=== PATIENT | male | born 1995 | race African-American/Black ===

== ENCOUNTER 2016-06-11 18:07 | Emergency (ER) | payer OTHER ==
[~2016-06-11] VITALS: Ht 182.9 cm; Wt 60.9 kg
[~2016-06-11 18:07] MED LIST: NAPR375T3 PO
[2016-06-11 18:13] VITALS: TEMP 36.8; Ht 182.9 cm; Wt 60.9 kg
[2016-06-11 18:57] LABS: BASO % 0.3 %; BASO ABS # 0.02 K/uL (0-0.2); COMPLETE YES; EOS % 0.8 %; HEMATOCRIT 40.3 % (42-52); IG% 0.1 %; LYMPH % 22.8 %; LYMPH ABS # 1.76 K/uL (1.2-3.4); MEAN CELL VOLUME 85.9 fL (80-100); MEAN CORPUSCULAR HEMOGLOBIN 30.5 pg (25-34); MEAN CORPUSCULAR HGB CONC 35.5 g/dl (32-36); MEAN PLATELET VOLUME 9.1 fL (7.4-10.4); MONO % 2.8 %; NEUT % 73.2 %; PLATELET COUNT 319 K/uL (130-400); RED BLOOD COUNT 4.69 M/uL (4.7-6.1); WHITE BLOOD COUNT 7.73 K/uL (4.8-10.8)
[2016-06-11 19:18] LABS: BUN/CREATININE RATIO 15.6 (10-20); CREATININE 0.88 mg/dl (0.60-1.40); POTASSIUM 3.5 mmol/L (3.5-5.1)
[2016-06-11 19:24] LABS: ACETAMINOPHEN < 2 ug/ml (10-30)
[2016-06-11 19:25] LABS: URINE APPEARANCE CLEAR (CLEAR); URINE BILIRUBIN NEG (NEG); URINE COLOR DK YELLOW; URINE EPITHELIAL CELL AUTO 20-30 /lpf (0-5); URINE NITRITE NEG (NEG); URINE PH 6.5 (4.5-7.5); URINE SPECIFIC GRAVITY 1.039 (1.000-1.030); UROBILINOGEN NEG (NEG); ZZUR CULT IF INDIC CLEAN CATCH NO
[2016-06-11 19:26] LABS: MANUAL MICROSCOPIC REQUIRED? NO; REVIEW REQ? NO
--- NOTE | 2016-06-11 19:27 | EMERGENCY ROOM VISIT NOTE ---
History Report prepared by Johanny: Jhonathan Castano Under the Supervision of: Dr. Lenny Perdue D.O. First contact with patient: 19:12 Chief Complaint: MENTAL HEALTH EVALUATION Stated Complaint: MENTAL HEALTH EVAL History of Present Illness The patient is a 20 year old male who presents to the Emergency Room with complaints of persistent suicidal ideation that has been worsening over the past few days. The patient notes that his medications have not been working. He has been taking them as prescribed except today he did not take them. The last dose he took was his night medications last night. He currently has thoughts of wanting to hurt himself and suicidal ideation. He denies having a plan. He notes that he has been admitted at the [facility] 3 times in the past year. His last admission was a month ago on May 05. The patient notes that he does not want to go back to the [facility] because he does not think it was working well or helping his symptoms. Source of History: patient Onset: the past few days Position: other (global) Note: Other associated symptoms: thoughts of wanting to hurt herself Denies: having a plan Review of Systems See HPI for pertinent positives & negatives. A total of 10 systems reviewed and were otherwise negative. Past Medical & Surgical Medical Problems: (1) ADHD (attention deficit hyperactivity disorder) (2) Anxiety (3) Hypokalemia (4) Marijuana abuse (5) Tobacco abuse Surgical Problems: (1) No pertinent past surgical history Family History Patient reports no known family medical history. Social History Smoking Status: Current Every Day Smoker Drug Use: marijuana Marital Status: single Housing Status: lives with family Occupation Status: employed Current/Historical Medications Scheduled Naproxen (Naproxen), 375 MG PO BID Allergies Coded Allergies: Acetaminophen (Verified Allergy, Unknown, red and itchy, 01/17/16) Physical Exam Vital Signs Date Time Temp Pulse Resp B/P Pulse Ox O2 Delivery O2 Flow Rate FiO2 06/11/16 19:59 111 18 109/67 96 06/11/16 18:13 36.8 135 18 123/82 97 Room Air Pain Rating (0-10): 0 Physical Exam GENERAL: Patient is awake alert in no acute distress patient is resting comfortably and showing no signs of anxiety EYES: The conjunctivae are clear. The pupils are round and reactive. EARS, NOSE, MOUTH AND THROAT: The nose is without any evidence of any deformity. Mucous membranes are moist tongue is midline. Widespread dental caries noted NECK: The neck is nontender and supple. RESPIRATORY: Normal respiratory effort is noted there is no evidence of wheezing rhonchi or rales CARDIOVASCULAR: Tachycardic but regular. No definite murmurs were noted. GASTROINTESTINAL: The abdomen is soft. Bowel sounds are present in all quadrants. Abdomen is nontender MUSCULOSKELETAL/EXTREMITIES: There is no evidence of gross deformity full range of motion is noted in the hips and shoulders SKIN: There is no obvious evidence of any rash. There are no petechiae, pallor or cyanosis noted. NEUROLOGIC: Patient is awake alert and oriented x3 strength is symmetric patellar reflexes are 2+ bilaterally PSYCH: Affect is normal. Patient makes good eye contact. Currently admits to vague passive suicidal ideation but no plan. Medical Decision & Procedures Laboratory Results 06/11/16 18:45 Red Blood Count 4.69, Mean Corpuscular Volume 85.9, Mean Corpuscular Hemoglobin 30.5, Mean Corpuscular Hemoglobin Concent 35.5, Mean Platelet Volume 9.1, Neutrophils (%) (Auto) 73.2, Lymphocytes (%) (Auto) 22.8, Monocytes (%) (Auto) 2.8, Eosinophils (%) (Auto) 0.8, Basophils (%) (Auto) 0.3, Neutrophils # (Auto) 5.66, Lymphocytes # (Auto) 1.76, Monocytes # (Auto) 0.22, Eosinophils # (Auto) 0.06, Basophils # (Auto) 0.02 06/11/16 18:45 Test 06/11/16 18:45 06/11/16 18:55 White Blood Count 7.73 K/uL (4.8-10.8) Red Blood Count 4.69 M/uL (4.7-6.1) Hemoglobin 14.3 g/dL (14.0-18.0) Hematocrit 40.3 % (42-52) Mean Corpuscular Volume 85.9 fL (80-100) Mean Corpuscular Hemoglobin 30.5 pg (25-34) Mean Corpuscular Hemoglobin Concent 35.5 g/dl (32-36) Platelet Count 319 K/uL (130-400) Mean Platelet Volume 9.1 fL (7.4-10.4) Neutrophils (%) (Auto) 73.2 % Lymphocytes (%) (Auto) 22.8 % Monocytes (%) (Auto) 2.8 % Eosinophils (%) (Auto) 0.8 % Basophils (%) (Auto) 0.3 % Neutrophils # (Auto) 5.66 K/uL (1.4-6.5) Lymphocytes # (Auto) 1.76 K/uL (1.2-3.4) Monocytes # (Auto) 0.22 K/uL (0.11-0.59) Eosinophils # (Auto) 0.06 K/uL (0-0.5) Basophils # (Auto) 0.02 K/uL (0-0.2) RDW Standard Deviation 40.7 fL (36.4-46.3) RDW Coefficient of Variation 13.0 % (11.5-14.5) Immature Granulocyte % (Auto) 0.1 % Immature Granulocyte # (Auto) 0.01 K/uL (0.00-0.02) Anion Gap 8.0 mmol/L (3-11) Est Creatinine Clear Calc Drug Dose 115.3 ml/min Estimated GFR () 143.3 Estimated GFR (Non- 123.7 BUN/Creatinine Ratio 15.6 (10-20) Calcium Level 9.0 mg/dl (8.5-10.1) Total Bilirubin 0.4 mg/dl (0.2-1) Aspartate Amino Transf (AST/SGOT) 14 U/L (15-37) Alanine Aminotransferase (ALT/SGPT) 15 U/L (12-78) Alkaline Phosphatase 100 U/L (45-117) Total Protein 8.0 gm/dl (6.4-8.2) Albumin 3.8 gm/dl (3.4-5.0) Globulin 4.2 gm/dl (2.5-4.0) Albumin/Globulin Ratio 0.9 (0.9-2) Thyroid Stimulating Hormone (TSH) 0.201 uIu/ml (0.300-4.500) Salicylates Level 2.4 mg/dl (2.8-20) Acetaminophen Level < 2 ug/ml (10-30) Ethyl Alcohol mg/dL < 3.0 mg/dl (0-3) Urine Color DK YELLOW Urine Appearance CLEAR (CLEAR) Urine pH 6.5 (4.5-7.5) Urine Specific [place] 1.039 (1.000-1.030) Urine Protein TRACE (NEG) Urine Glucose (UA) NEG (NEG) Urine Ketones TRACE (NEG) Urine Occult Blood NEG (NEG) Urine Nitrite NEG (NEG) Urine Bilirubin NEG (NEG) Urine Urobilinogen NEG (NEG) Urine Leukocyte Esterase TRACE (NEG) Urine WBC (Auto) 1-5 /hpf (0-5) Urine RBC (Auto) 0-4 /hpf (0-4) Urine Hyaline Casts (Auto) 1-5 /lpf (0-5) Urine Epithelial Cells (Auto) 20-30 /lpf (0-5) Urine Bacteria (Auto) NEG (NEG) Urine Opiates Screen POS (NEG) Urine Methadone, Qualitative NEG (NEG) Urine Barbiturates NEG (NEG) Urine Phencyclidine (PCP) Level NEG (NEG) Ur Amphetamine/Methamphetamine NEG (NEG) MDMA (Ecstasy) Screen POS (NEG) Urine Benzodiazepines Screen NEG (NEG) Urine Cocaine Metabolite NEG (NEG) Urine Marijuana (THC) NEG (NEG) Laboratory results per my review. ED Course 191: The patient was evaluated in room A5. A complete history and physical examination were performed. 193: At this time, the patient decided he wanted to go home. The patient was discharged home. Medical Decision Differential diagnosis: Etiologies such as mood disorder, infection, hypoglycemia, electrolyte abnormalities, cardiac sources, intracerebral event, toxicologic, neurologic, as well as others were entertained. Nursing notes reviewed. The patient is a 20-year-old male who presented to the emergency department for an evaluation of depression and suicidal ideation. The patient was having passive suicidal ideation. He had a plan. He was medically cleared in the emergency department. He was evaluated by the mental health lining caser. The patient did not wish to have inpatient management. We discussed his case with his mother who was agreeable to come and picked the patient up and ensure safety. The patient was able to contract for safety. He was encouraged to follow -up with his primary therapist as soon as possible and continue all medications as prescribed. He was also encouraged to return to the emergency department immediately or call crisis if symptoms change worsen or the need arises. Impression Primary Impression: Anxiety Additional Impressions: Depression Suicidal ideation Scribe Attestation The scribe's documentation has been prepared under my direction and personally reviewed by me in its entirety. I confirm that the note above accurately reflects all work, treatment, procedures, and medical decision making performed by me. Departure Information Dispostion Home / Self-Care Referrals No Doctor, Assigned (PCP) Forms HOME CARE DOCUMENTATION FORM, IMPORTANT VISIT INFORMATION Patient Instructions Depression Causes, My [facility] Additional Instructions Follow-up with your primary therapist as scheduled. Continue all medications as prescribed. Drink plenty clear liquids. Follow-up with your family this week as well. Return to the emergency department or call crisis if symptoms worsen or if need arises. Problem Qualifiers Additional Impressions: Depression Depression Type: unspecified Qualified Codes: F32.9 - Major depressive disorder, single episode, unspecified
[2016-06-11 19:28] LABS: ALB/GLOB RATIO 0.9 (0.9-2); THYROID STIMULATING HORMONE 0.201 uIu/ml (0.300-4.500)
[2016-06-11 19:59] VITALS: BP 109/67; PULSE 111; O2SAT 96
[2016-06-11 20:02] LABS: BENZODIAZEPINE, URINE NEG (NEG); COCAINE,URINE NEG (NEG); PHENCYCLIDINE, URINE NEG (NEG)
[2016-06-16 15:37] LABS: COD UR NEGATIVE NG/ML (CUTOFF=50); HYDROCOD UR NEGATIVE NG/ML (CUTOFF=50); HYDROMOR UR 197 NG/ML (CUTOFF=50); MORPHINE UR 3700 NG/ML (CUTOFF=50); NORHYDROCODONE CONF UR NEGATIVE NG/ML (CUTOFF=50); OXYMORPH UR NEGATIVE NG/ML (CUTOFF=50); SYNTHETIC CANNABINOIDS QL URIN NEGATIVE (Negative)
[2016-06-24] MEDS ORDERED: CTP/1 PO (09:36)
[2016-06-24] MEDS ORDERED: SRQ/50 PO (09:36)
[2016-06-24] MEDS ORDERED: LXP/20 PO (09:36)
[2016-06-24] MEDS ORDERED: NRN300 PO (09:36)
== END 2016-06-11 20:00 | disposition home or self-care (01) ==
LOC: C.EDB 18:07 → C.EDA 20:00
DX: F32.9 Major depressive disorder, single episode, unspecified (principal); R45.851 Suicidal ideations; F41.9 Anxiety disorder, unspecified; F90.9 Attention-deficit hyperactivity disorder, unspecified type; F17.200 Nicotine dependence, unspecified, uncomplicated; Z88.6 Allergy status to analgesic agent

== ENCOUNTER 2016-06-22 12:39 | Inpatient (IN) | payer OTHER ==
[~2016-06-22] VITALS: Ht 182.9 cm; Wt 63.4 kg
[2016-06-22] MEDS ORDERED: LXP/20 PO (13:00)
[2016-06-22] MEDS ORDERED: CTP/1 PO (13:00)
[2016-06-22] MEDS ORDERED: CTP1 PO (13:00)
[2016-06-22] MEDS ORDERED: CHLO100T8 PO (13:00)
[2016-06-22] MEDS ORDERED: ATV/1 PO (13:08)
[2016-06-22] MEDS ORDERED: NPR375 PO (13:08)
[2016-06-22] MEDS ORDERED: PENI-82 PO (13:08)
[2016-06-22 13:32] LABS: BASO % 0.2 %; BASO ABS # 0.02 K/uL (0-0.2); COMPLETE YES; HEMATOCRIT 43.3 % (42-52); IG% 0.2 %; LYMPH % 27.1 %; LYMPH ABS # 2.34 K/uL (1.2-3.4); MEAN CELL VOLUME 88.5 fL (80-100); MEAN CORPUSCULAR HEMOGLOBIN 30.7 pg (25-34); MEAN CORPUSCULAR HGB CONC 34.6 g/dl (32-36); MEAN PLATELET VOLUME 9.1 fL (7.4-10.4); MONO % 5.5 %; PLATELET COUNT 237 K/uL (130-400); RED BLOOD COUNT 4.89 M/uL (4.7-6.1); WHITE BLOOD COUNT 8.65 K/uL (4.8-10.8)
[2016-06-22 13:39] LABS: URINE APPEARANCE CLEAR (CLEAR); URINE BILIRUBIN NEG (NEG); URINE COLOR DK YELLOW; URINE NITRITE NEG (NEG); URINE SPECIFIC GRAVITY 1.022 (1.000-1.030); UROBILINOGEN NEG (NEG); ZZUR CULT IF INDIC CLEAN CATCH YES
[2016-06-22 13:41] LABS: MANUAL MICROSCOPIC REQUIRED? NO; REVIEW REQ? NO
[2016-06-22 13:51] LABS: BUN/CREATININE RATIO 11.5 (10-20); CALCIUM 9.1 mg/dl (8.5-10.1); CREATININE 0.95 mg/dl (0.60-1.40)
[2016-06-22 13:54] LABS: ACETAMINOPHEN < 2 ug/ml (10-30)
[2016-06-22 14:03] LABS: ALB/GLOB RATIO 0.9 (0.9-2); THYROID STIMULATING HORMONE 2.2 uIu/ml (0.300-4.500)
[2016-06-22 14:03] LABS: BENZODIAZEPINE, URINE NEG (NEG); COCAINE,URINE NEG (NEG); PHENCYCLIDINE, URINE NEG (NEG)
--- NOTE | 2016-06-22 14:09 | EMERGENCY ROOM VISIT NOTE ---
History Report prepared by Johanny: Halle Montemayor Under the Supervision of: Dr. Dominique Carty D.O. First contact with patient: 13:28 Chief Complaint: MENTAL HEALTH EVALUATION Stated Complaint: MENTAL HEALTH History of Present Illness The patient is a 20 year old male who presents to the Emergency Room with complaints of worsening depression over the past two weeks. The patient states that he has a history of depression and recently had a change in his medications. He notes that he was recently evaluated in the [facility] and placed on Lexapro, Clonidine, and Thorazine. The patient states that he felt that the medications were working while he was at the [facility], but he notes that over the past two weeks he has been falling back to where he was before. He states that he has been feeling suicidal, but denies any plan. The patient states that he has had thoughts that things would be easier if he was not here. He notes emotional pain, increased stress, and decreased energy. The patient states that he has not been wanting to get out of bed to do simple tasks, or to see his friends, family, or girlfriend. He denies any homicidal ideation. The patient denies any auditory or visual hallucinations. He states that he has been experiencing racing thoughts. The patient states that he was recently evaluated in [facility] emergency department and placed on Penicillin and pain medication for his teeth. He states that he has been feeling lightheaded with standing, but notes that he has had a decrease in his appetite and fluid intake. The patient states that he smokes cigarettes, but denies any recreational drugs or alcohol. Source of History: patient Onset: two weeks Position: other (global) Quality: other (depression) Timing: worsening Note: Associated Symptoms: decrease in appetite and fluid intake, suicidal ideation without a plan, lightheaded with standing, emotional pain, increased stress, decreased energy Review of Systems See HPI for pertinent positives & negatives. A total of 10 systems reviewed and were otherwise negative. Past Medical & Surgical Medical Problems: (1) ADHD (attention deficit hyperactivity disorder) (2) Anxiety (3) Hypokalemia (4) Marijuana abuse (5) Tobacco abuse Surgical Problems: (1) No pertinent past surgical history Family History Patient reports no known family medical history. Social History Smoking Status: Current Every Day Smoker Drug Use: marijuana Marital Status: single Housing Status: lives with family Occupation Status: employed Current/Historical Medications Scheduled Chlorpromazine Hcl (Thorazine), 100 MG PO TID Clonidine HCl (Clonidine HCl), 0.05 MG PO QAM Clonidine Hcl (Catapres), 0.1 MG PO HS Escitalopram Oxalate (Escitalopram Oxalate), 20 MG PO DAILY Scheduled PRN Naproxen (Naproxen), 375 MG PO BID PRN for Pain Allergies Coded Allergies: Acetaminophen (Verified Allergy, Unknown, red and itchy, 01/17/16) Physical Exam Vital Signs Date Time Temp Pulse Resp B/P Pulse Ox O2 Delivery O2 Flow Rate FiO2 06/22/16 14:37 80 16 105/67 95 06/22/16 12:40 36.9 118 20 133/83 98 Room Air Physical Exam GENERAL: alert, well appearing, well nourished, no distress, non-toxic EYE EXAM: normal conjunctiva, PERRL and EOM's grossly intact OROPHARYNX: no exudate, no erythema, lips, buccal mucosa, and tongue normal and mucous membranes are moist NECK: supple, no nuchal rigidity, no adenopathy, non-tender LUNGS: Clear to auscultation. Normal chest wall mechanics HEART: no murmurs, S1 normal and S2 normal ABDOMEN: abdomen soft, non-tender, normo-active bowel sounds, no masses, no rebound or guarding. BACK: Back is symmetrical on inspection and there is no deformity, no midline tenderness, no CVA tenderness. SKIN: no rashes and no bruising UPPER EXTREMITIES: upper extremities are grossly normal. LOWER EXTREMITIES: No pitting edema. NEURO EXAM: Normal sensorium, cranial nerves II-XII grossly intact, normal speech, no gross weakness of arms, no gross weakness of legs. PSYCH: Patient admits to suicidal ideation without a plan, denies homicidal ideation or paranoia. Medical Decision & Procedures Laboratory Results 06/22/16 13:18 Red Blood Count 4.89, Mean Corpuscular Volume 88.5, Mean Corpuscular Hemoglobin 30.7, Mean Corpuscular Hemoglobin Concent 34.6, Mean Platelet Volume 9.1, Neutrophils (%) (Auto) 63.0, Lymphocytes (%) (Auto) 27.1, Monocytes (%) (Auto) 5.5, Eosinophils (%) (Auto) 4.0, Basophils (%) (Auto) 0.2, Neutrophils # (Auto) 5.44, Lymphocytes # (Auto) 2.34, Monocytes # (Auto) 0.48, Eosinophils # (Auto) 0.35, Basophils # (Auto) 0.02 06/22/16 13:18 Test 06/22/16 00:00 06/22/16 13:08 06/22/16 13:18 Urine Color DK YELLOW Urine Appearance CLEAR (CLEAR) Urine pH 5.0 (4.5-7.5) Urine Specific [place] 1.022 (1.000-1.030) Urine Protein NEG (NEG) Urine Glucose (UA) NEG (NEG) Urine Ketones NEG (NEG) Urine Occult Blood NEG (NEG) Urine Nitrite NEG (NEG) Urine Bilirubin NEG (NEG) Urine Urobilinogen NEG (NEG) Urine Leukocyte Esterase SMALL (NEG) Urine WBC (Auto) 10-30 /hpf (0-5) Urine RBC (Auto) 0-4 /hpf (0-4) Urine Hyaline Casts (Auto) 5-10 /lpf (0-5) Urine Epithelial Cells (Auto) 10-20 /lpf (0-5) Urine Bacteria (Auto) NEG (NEG) Urine Opiates Screen POS (NEG) Urine Methadone, Qualitative NEG (NEG) Urine Barbiturates NEG (NEG) Urine Phencyclidine (PCP) Level NEG (NEG) Ur Amphetamine/Methamphetamine NEG (NEG) MDMA (Ecstasy) Screen POS (NEG) Urine Benzodiazepines Screen NEG (NEG) Urine Cocaine Metabolite NEG (NEG) Urine Marijuana (THC) NEG (NEG) Salicylates Level 2.1 mg/dl (2.8-20) Acetaminophen Level < 2 ug/ml (10-30) White Blood Count 8.65 K/uL (4.8-10.8) Red Blood Count 4.89 M/uL (4.7-6.1) Hemoglobin 15.0 g/dL (14.0-18.0) Hematocrit 43.3 % (42-52) Mean Corpuscular Volume 88.5 fL (80-100) Mean Corpuscular Hemoglobin 30.7 pg (25-34) Mean Corpuscular Hemoglobin Concent 34.6 g/dl (32-36) Platelet Count 237 K/uL (130-400) Mean Platelet Volume 9.1 fL (7.4-10.4) Neutrophils (%) (Auto) 63.0 % Lymphocytes (%) (Auto) 27.1 % Monocytes (%) (Auto) 5.5 % Eosinophils (%) (Auto) 4.0 % Basophils (%) (Auto) 0.2 % Neutrophils # (Auto) 5.44 K/uL (1.4-6.5) Lymphocytes # (Auto) 2.34 K/uL (1.2-3.4) Monocytes # (Auto) 0.48 K/uL (0.11-0.59) Eosinophils # (Auto) 0.35 K/uL (0-0.5) Basophils # (Auto) 0.02 K/uL (0-0.2) RDW Standard Deviation 43.8 fL (36.4-46.3) RDW Coefficient of Variation 13.5 % (11.5-14.5) Immature Granulocyte % (Auto) 0.2 % Immature Granulocyte # (Auto) 0.02 K/uL (0.00-0.02) Anion Gap 9.0 mmol/L (3-11) Est Creatinine Clear Calc Drug Dose 111.2 ml/min Estimated GFR () 133.0 Estimated GFR (Non- 114.8 BUN/Creatinine Ratio 11.5 (10-20) Calcium Level 9.1 mg/dl (8.5-10.1) Total Bilirubin 0.4 mg/dl (0.2-1) Aspartate Amino Transf (AST/SGOT) 14 U/L (15-37) Alanine Aminotransferase (ALT/SGPT) 16 U/L (12-78) Alkaline Phosphatase 95 U/L (45-117) Total Protein 7.6 gm/dl (6.4-8.2) Albumin 3.7 gm/dl (3.4-5.0) Globulin 3.9 gm/dl (2.5-4.0) Albumin/Globulin Ratio 0.9 (0.9-2) Thyroid Stimulating Hormone (TSH) 2.200 uIu/ml (0.300-4.500) Ethyl Alcohol mg/dL < 3.0 mg/dl (0-3) Laboratory results per my review. ED Course 1344: The patient was evaluated in room A8. A complete history and physical examination was performed. 1555: Patient being evaluated by behavioral health staff. Patient denies any complaints. GC/committee added to urine, awaiting culture. Patient covered for possible STD exposure in the interim. Of note additional nursing investigation found the patient's current medication list is not accurate. Patient's urine drug screen was also positive for opiates. Medical Decision The patient is a 20 year old male who presents to the ED with complaints of worsening depression. Differential diagnosis include, anxiety, depression, thyroid disorder Impression Primary Impression: Depression Scribe Attestation The scribe's documentation has been prepared under my direction and personally reviewed by me in its entirety. I confirm that the note above accurately reflects all work, treatment, procedures, and medical decision making performed by me. Departure Information Referrals No Doctor, Assigned (PCP) Patient Instructions My [facility] Problem Qualifiers Primary Impression: Depression Depression Type: unspecified Qualified Codes: F32.9 - Major depressive disorder, single episode, unspecified
[2016-06-22 14:37] VITALS: O2SAT 95
[2016-06-22] MEDS ORDERED: AZITHROMYCIN 250 MG TAB PO ONE (16:00)
[2016-06-22] MEDS ORDERED: CEFTRIAXONE SOD 350MG/ML 1 GM VIAL IM ONE (16:00)
[2016-06-22] MEDS ORDERED: MAGNESIUM HYDROXIDE SUSP 30 ML UDC PO PRN (16:30)
[2016-06-22] MEDS ORDERED: SODIUM CHLORIDE 0.65% NA SOLN 45 ML (OCEAN) PRN (16:30)
[2016-06-22] MEDS ORDERED: IBUPROFEN 600 MG TAB PO PRN (16:30)
[2016-06-22] MEDS ORDERED: ALUMINUM/MAGNESIUM SUSP 30 ML UDC PO PRN (16:30)
[2016-06-22] MEDS ORDERED: BISMUTH SUBSALICYLATE PER ML OMNICELL CHARGE PO PRN (16:30)
[2016-06-22] MEDS ORDERED: NICOTINE POLACRILEX 2 MG GUM MT PRN (16:30)
[2016-06-22] MEDS ORDERED: hydrOXYzine HCL 25 MG TAB PO PRN ×2 (16:30)
--- NOTE | 2016-06-22 16:52 | EMERGENCY ROOM VISIT NOTE ---
ED Visit Note This is a 20-year-old male signed out to me at change of shift. History and physical verified by me. Patient has been accepted to [facility]. and signed a 201. Problem List Medical Problems: (1) ADHD (attention deficit hyperactivity disorder) Status: Resolved (2) Marijuana abuse Status: Chronic (3) Tobacco abuse Status: Chronic Surgical Problems: (1) No pertinent past surgical history Status: Resolved Current/Historical Medications Scheduled Chlorpromazine Hcl (Thorazine), 100 MG PO TID Clonidine HCl (Clonidine HCl), 0.05 MG PO QAM Clonidine Hcl (Catapres), 0.1 MG PO HS Escitalopram Oxalate (Escitalopram Oxalate), 20 MG PO DAILY Scheduled PRN Naproxen (Naproxen), 375 MG PO BID PRN for Pain Allergies Coded Allergies: Acetaminophen (Verified Allergy, Unknown, red and itchy, 01/17/16) Vital Signs Date Time Temp Pulse Resp B/P Pulse Ox O2 Delivery O2 Flow Rate FiO2 06/22/16 14:37 80 16 105/67 95 06/22/16 12:40 36.9 118 20 133/83 98 Room Air Laboratory Results 06/22/16 13:18 Red Blood Count 4.89, Mean Corpuscular Volume 88.5, Mean Corpuscular Hemoglobin 30.7, Mean Corpuscular Hemoglobin Concent 34.6, Mean Platelet Volume 9.1, Neutrophils (%) (Auto) 63.0, Lymphocytes (%) (Auto) 27.1, Monocytes (%) (Auto) 5.5, Eosinophils (%) (Auto) 4.0, Basophils (%) (Auto) 0.2, Neutrophils # (Auto) 5.44, Lymphocytes # (Auto) 2.34, Monocytes # (Auto) 0.48, Eosinophils # (Auto) 0.35, Basophils # (Auto) 0.02 06/22/16 13:18 Test 06/22/16 00:00 06/22/16 13:08 06/22/16 13:18 Urine Color DK YELLOW Urine Appearance CLEAR (CLEAR) Urine pH 5.0 (4.5-7.5) Urine Specific [place] 1.022 (1.000-1.030) Urine Protein NEG (NEG) Urine Glucose (UA) NEG (NEG) Urine Ketones NEG (NEG) Urine Occult Blood NEG (NEG) Urine Nitrite NEG (NEG) Urine Bilirubin NEG (NEG) Urine Urobilinogen NEG (NEG) Urine Leukocyte Esterase SMALL (NEG) Urine WBC (Auto) 10-30 /hpf (0-5) Urine RBC (Auto) 0-4 /hpf (0-4) Urine Hyaline Casts (Auto) 5-10 /lpf (0-5) Urine Epithelial Cells (Auto) 10-20 /lpf (0-5) Urine Bacteria (Auto) NEG (NEG) Urine Opiates Screen POS (NEG) Urine Methadone, Qualitative NEG (NEG) Urine Barbiturates NEG (NEG) Urine Phencyclidine (PCP) Level NEG (NEG) Ur Amphetamine/Methamphetamine NEG (NEG) MDMA (Ecstasy) Screen POS (NEG) Urine Benzodiazepines Screen NEG (NEG) Urine Cocaine Metabolite NEG (NEG) Urine Marijuana (THC) NEG (NEG) Salicylates Level 2.1 mg/dl (2.8-20) Acetaminophen Level < 2 ug/ml (10-30) White Blood Count 8.65 K/uL (4.8-10.8) Red Blood Count 4.89 M/uL (4.7-6.1) Hemoglobin 15.0 g/dL (14.0-18.0) Hematocrit 43.3 % (42-52) Mean Corpuscular Volume 88.5 fL (80-100) Mean Corpuscular Hemoglobin 30.7 pg (25-34) Mean Corpuscular Hemoglobin Concent 34.6 g/dl (32-36) Platelet Count 237 K/uL (130-400) Mean Platelet Volume 9.1 fL (7.4-10.4) Neutrophils (%) (Auto) 63.0 % Lymphocytes (%) (Auto) 27.1 % Monocytes (%) (Auto) 5.5 % Eosinophils (%) (Auto) 4.0 % Basophils (%) (Auto) 0.2 % Neutrophils # (Auto) 5.44 K/uL (1.4-6.5) Lymphocytes # (Auto) 2.34 K/uL (1.2-3.4) Monocytes # (Auto) 0.48 K/uL (0.11-0.59) Eosinophils # (Auto) 0.35 K/uL (0-0.5) Basophils # (Auto) 0.02 K/uL (0-0.2) RDW Standard Deviation 43.8 fL (36.4-46.3) RDW Coefficient of Variation 13.5 % (11.5-14.5) Immature Granulocyte % (Auto) 0.2 % Immature Granulocyte # (Auto) 0.02 K/uL (0.00-0.02) Anion Gap 9.0 mmol/L (3-11) Est Creatinine Clear Calc Drug Dose 111.2 ml/min Estimated GFR () 133.0 Estimated GFR (Non- 114.8 BUN/Creatinine Ratio 11.5 (10-20) Calcium Level 9.1 mg/dl (8.5-10.1) Total Bilirubin 0.4 mg/dl (0.2-1) Aspartate Amino Transf (AST/SGOT) 14 U/L (15-37) Alanine Aminotransferase (ALT/SGPT) 16 U/L (12-78) Alkaline Phosphatase 95 U/L (45-117) Total Protein 7.6 gm/dl (6.4-8.2) Albumin 3.7 gm/dl (3.4-5.0) Globulin 3.9 gm/dl (2.5-4.0) Albumin/Globulin Ratio 0.9 (0.9-2) Thyroid Stimulating Hormone (TSH) 2.200 uIu/ml (0.300-4.500) Ethyl Alcohol mg/dL < 3.0 mg/dl (0-3) Medications Administered Medications (Trade) Dose Ordered Sig/[place]cho[place] Route Start Time Stop Time Status Last Admin Dose Admin Azithromycin (Zithromax Tab) 1,000 mg NOW ONCE PO 06/22/16 16:00 06/22/16 16:01 DC 06/22/16 16:22 1,000 MG Departure Information Impression Primary Impression: Depression Referrals No Doctor, Assigned Patient Instructions My [facility]
[2016-06-22] MEDS ORDERED: NICOTINE 21 MG/24 HR TDSY TD ONE (17:18)
[2016-06-22 18:55] VITALS: BP 115/83; PULSE 72; TEMP 36.9; Ht 182.9 cm; Wt 63.4 kg
[2016-06-22 21:15] VITALS: BP 114/70; PULSE 74
[2016-06-22] MEDS: CLONIDINE HCL 0.1 MG TAB PO SCH (21:38)
[2016-06-22] MEDS: CHLORPROMAZINE HCL 100 MG TAB PO SCH (21:38)
[2016-06-22] MEDS: NAPROXEN 375 MG TAB PO PRN (21:41)
[2016-06-23 06:30] VITALS: BP_SYST 104; BP_SYST 94; BP_DIAS 57; BP_DIAS 64; PULSE 66; PULSE 89; TEMP 36.4
[2016-06-23] MEDS ORDERED: NICOTINE 14 MG/24 HR TDSY TD SCH (09:00)
[2016-06-23] MEDS ORDERED: NICOTINE 7 MG/24 HR TDSY TD SCH (09:00)
[2016-06-23] MEDS ORDERED: NICOTINE 21 MG/24 HR TDSY TD SCH (09:00)
[2016-06-23] MEDS: ESCITALOPRAM OXALATE 20 MG TAB PO SCH (09:16)
[2016-06-23] MEDS: CLONIDINE HCL 0.1 MG TAB PO SCH ×2 (09:17→21:00)
[2016-06-23] MEDS: CHLORPROMAZINE HCL 100 MG TAB PO SCH (09:17)
[2016-06-23] MEDS: NICOTINE 21 MG/24 HR TDSY TD SCH (09:21)
--- NOTE | 2016-06-23 11:06 | Psychiatric History & Physical ---
History Identifying Data Ga Rainey is a 20-year-old male who currently lives in [place] with his mother. Ga Rainey was admitted on a 201 voluntary commitment. He presented to the ED c/o panic attacks and requesting psych med changes. Chief Complaint "If you aren't going to give me Ativan I don't see a point in staying here". History of Present Illness Ga has a history of frequent trips to the ED and reports 3 psychiatric hospitalizations at the [facility] in the past year for anxiety and passive wish. "I wouldn't hurt myself but I sometimes feel it would be easier if I wasn 't around". He was previously seen in psychiatric consultation by Dr. Baptiste on after several visits to ED for panic. It was noted at that time that he self medicates with MJ and recommendations were to avoid benzos. Based on [employer] query it apperas that he was prescribed Ativan while at the [facility], no benzo since October when is was tapered by Dr. Flores. He states that he was admitted to the [facility] in May for uncontrolled anxiety with "racing thoughts", mainly worries about something bad happening to his mother or not being able to pay his bills which then escalates to feeling of chest tightness. He was switched from Seroquel 50 mg BID and 100 hs to Thorazine during that stay. 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 He states he won't feel like getting out of bed and isolates more, "my mom can tell ". He may not feel like making himself something to eat. He is rather vague about the frequency of his MJ use, admits that when he is stressed he will smoke up to 1 PPD (usually 1/2 PPD cigarettes). He has also received Tylenol with codeine short supplies from various EDs for dental pain as he has very poor dentition. [facility] confirmed to staff that he has missed 12 appts but apparently has had med refills as pharmacy confirms meds filled as listed on 06/17. He states that Lexapro has been more helpful than Celexa previously for his mood. He believes that he may have been diagnosed with unspecified bipolar disorder but denies any periods of hypomania or extreme irritability. He denies a history of rowan. Some of his previous ED visits for panic were in setting of cannabis withdrawal. Past Psychiatric History Current OP Treatment: no current treatment Prior OP Treatment: psychiatrist (Dr. Arriaga as a child for ADHD) Prior Psych Hospitalizations: [facility] (as above, most recent 06/02, signing ABUNDIO, denies suicide attempts) past meds have included Celexa, Seroquel, trazodone and current rx. He is unsure what he took for ADHD as a child. He believes clonidine is for impulsivity as he denies a history of HTN. Past Medical/Surgical History History of HTN: No History of Concussion/Seizure: No Problem List: (1) Tobacco abuse (2) Marijuana abuse Allergies Allergies: Coded Allergies: Acetaminophen (Verified Allergy, Unknown, red and itchy, 01/17/16) Home Medications Scheduled Chlorpromazine Hcl (Thorazine), 100 MG PO TID Clonidine HCl (Clonidine HCl), 0.05 MG PO QAM Clonidine Hcl (Catapres), 0.1 MG PO HS Escitalopram Oxalate (Escitalopram Oxalate), 20 MG PO DAILY Scheduled PRN Naproxen (Naproxen), 375 MG PO BID PRN for Pain Family History Patient reports no known family medical history. History of Obesity: No History of HTN: No History of Diabetes: No History of Heart Disease: No History of Dyslipidemia: No states that brother was diagnosed with bipolar disorder and/or schizoaffective disorder, denies family history of suicide attempts but other family members on mom's side depressed states knows less on dad's side as "from [place] and don't buy that stuff" brother is currently incarcerated. Alcohol Use Alcohol Use In Past 12 Months: No (pt denies) Substance History Substance Use Past 12 Months: Hx of Inhalent Use: No (pt denies) Hx of Organic Substance Use: No (pt denies) Hx of Illegal/Street Drug Use: Yes (MJ, 1-2 joints, "regularly" but won't elaborate) Hx of Over the Counter Med Use: Yes (Z-Quil, recommended dose, HS, 06/21/16) Hx of Prescription Med Use: No (pt denies) Personal History Born in: [place] Education: graduated from high school (attended [employer] ) Work History: no regular work currently Relationship History: never Children: none Spiritual Affiliation: denies Legal History: none Abuse History: none Review of Systems Psych: denies symptoms other than stated above Constitutional: denied Cardiovascular: denied GI: denied Neurologic: denied Remainder of 10 body systems also reviewed and denied other than noted above other than poor dentition. Examination Physical Examination A physical exam was performed in the ER by Dr. Carty prior to admission to the unit. I accept that physical as correct/medical clearance for the inpatient physical exam. Vital Signs Vital Signs Past 12 Hours Date Time Temp Pulse Resp B/P Pulse Ox O2 Delivery O2 Flow Rate FiO2 06/23/16 06:30 36.4 66 16 94/57 89 104/64 Laboratory Results Last 24 Hours Test 06/22/16 13:08 06/22/16 13:18 Salicylates Level 2.1 mg/dl Acetaminophen Level < 2 ug/ml White Blood Count 8.65 K/uL Red Blood Count 4.89 M/uL Hemoglobin 15.0 g/dL Hematocrit 43.3 % Mean Corpuscular Volume 88.5 fL Mean Corpuscular Hemoglobin 30.7 pg Mean Corpuscular Hemoglobin Concent 34.6 g/dl Platelet Count 237 K/uL Mean Platelet Volume 9.1 fL Neutrophils (%) (Auto) 63.0 % Lymphocytes (%) (Auto) 27.1 % Monocytes (%) (Auto) 5.5 % Eosinophils (%) (Auto) 4.0 % Basophils (%) (Auto) 0.2 % Neutrophils # (Auto) 5.44 K/uL Lymphocytes # (Auto) 2.34 K/uL Monocytes # (Auto) 0.48 K/uL Eosinophils # (Auto) 0.35 K/uL Basophils # (Auto) 0.02 K/uL RDW Standard Deviation 43.8 fL RDW Coefficient of Variation 13.5 % Immature Granulocyte % (Auto) 0.2 % Immature Granulocyte # (Auto) 0.02 K/uL Sodium Level 140 mmol/L Potassium Level 4.0 mmol/L Chloride Level 104 mmol/L Carbon Dioxide Level 27 mmol/L Anion Gap 9.0 mmol/L Blood Urea Nitrogen 11 mg/dl Creatinine 0.95 mg/dl Est Creatinine Clear Calc Drug Dose 111.2 ml/min Estimated GFR () 133.0 Estimated GFR (Non- 114.8 BUN/Creatinine Ratio 11.5 Random Glucose 141 mg/dl Calcium Level 9.1 mg/dl Total Bilirubin 0.4 mg/dl Aspartate Amino Transf (AST/SGOT) 14 U/L Alanine Aminotransferase (ALT/SGPT) 16 U/L Alkaline Phosphatase 95 U/L Total Protein 7.6 gm/dl Albumin 3.7 gm/dl Globulin 3.9 gm/dl Albumin/Globulin Ratio 0.9 Thyroid Stimulating Hormone (TSH) 2.200 uIu/ml Ethyl Alcohol mg/dL < 3.0 mg/dl Mental Examination During interview pt is: alert and oriented Appearance: appropriately groomed, other (tattoos, poor dentition) Eye contact is: fair Motor behavior is: no abnormal motor movements Speech: normal in rate, rhythm & volume Affect: euthymic Mood is: anxious Thought process: clear, coherent Thought content: reality based without delusions Suicidal thought are: denied Homicidal thoughts are: denied Hallucinations: denies auditory, denies visual Cognition: attention grossly intact, language grossly intact Intelligence estimated to be: consistent with level of education Insight: limited Judgement: limited Impression / Recommendations Impression 20 yo male with history of anxiety and depression, family history of mood disorder, multiple presentations to ED and hospitalized recently at [facility]. Clearly seeking Ativan. Since admission to unit he states he will not plan to attend groups and asked questions about 72 hr notice if doesn't receive Ativan. He doesn't desire to quit smoking nor does he plan to change MJ use. Stressors include older brother's incarceration and lack of work. Risk Factors Assessment Male: Yes : Yes /single/: Yes Access to guns: Yes (previous consult notes a hunting rifle in the home) Substance use disorders: Yes Previous attempt: No Previous psychiatric stay: Yes Smoker: Yes Protective Factors Assessment Employed: No Supportive family: Yes Recommendations (1) Major depressive disorder, recurrent episode with anxious distress On admission: The patient is [facility]) on q 15 min checks (behavioral with suicide precautions) for safety. The patient will participate in group, recreational and milieu therapies and will be offered additional individual and family sessions as clinically appropriate. patient currently finds Lexapro helpful but remains anxious discussed obtaining ABUNDIO for [facility] and initiating thorazine taper in favor of a trial of Neurontin for anxiety/mood, reviewed that I advise against benzodiazepines. discussed possible retrial of Seroquel if records or family confirm that he was not abusing it needs outpatient follow up, ideally family meeting involving mom with confirmation that rifle is secure given recent passive wish (2) Tobacco abuse declines cessation counseling, accepts nicotine patch (3) Marijuana abuse advise abstinence CPT Code Initial Hospital Care: [id number]
[2016-06-23] MEDS: NAPROXEN 375 MG TAB PO PRN ×2 (15:45→21:02)
--- NOTE | 2016-06-23 16:00 | Psych Management Progress Note ---
Psychiatry Miscellaneous Date of Service: Jun 23, 2016. case discussed with oncology social work who confirmed that spoke with mother, supports return home, patient signed 72 hour notice, is agreeable to stay in hospital overnight for additional monitoring. Aftercare will be with [facility]. Mother asked for letter of inability to work/senior care disability for patient, reviewed that that is not recommended at this time. Ana Fierro stated that mother confirmed no weapons in the home, no longer a hunting rifle.
[2016-06-23] MEDS ORDERED: CHLORPROMAZINE HCL 50 MG PO SCH (17:00)
[2016-06-23] MEDS: GABAPENTIN 300 MG CAP PO SCH (17:14)
[2016-06-23] MEDS: CHLORPROMAZINE HCL 25 MG TAB PO SCH (17:14)
[2016-06-24] MEDS: NAPROXEN 375 MG TAB PO PRN (04:46)
[2016-06-24 06:51] VITALS: BP_SYST 112; BP_SYST 118; BP_DIAS 59; BP_DIAS 63; PULSE 75; PULSE 87; TEMP 36.5
[2016-06-24] MEDS: GABAPENTIN 300 MG CAP PO SCH (09:18)
[2016-06-24] MEDS: ESCITALOPRAM OXALATE 20 MG TAB PO SCH (09:19)
[2016-06-24] MEDS: CHLORPROMAZINE HCL 25 MG TAB PO SCH (09:19)
[2016-06-24] MEDS: CLONIDINE HCL 0.1 MG TAB PO SCH (09:20)
[2016-06-24] MEDS: NICOTINE 21 MG/24 HR TDSY TD SCH (09:22)
[2016-06-24] MEDS ORDERED: CTP/1 PO (09:36)
[2016-06-24] MEDS ORDERED: SRQ/50 PO (09:36)
[2016-06-24] MEDS ORDERED: LXP/20 PO (09:36)
[2016-06-24] MEDS ORDERED: NRN300 PO (09:36)
--- NOTE | 2016-06-24 09:44 | Discharge Instructions ---
Discharge Information Report Includes Report will include the: Discharge Instructions & Summary Admission Admission Date / Time: Jun 22, 2016 at 16:22 Reason for Admission: Mental Health Discharge Discharge Diagnosis / Problem: depression, anxiety Condition at Discharge: Fair Discharge Goals Goal(s): Decrease discomfort, Improve disease control Activity Recommendations Activity Limitations: resume your previous activity . Instructions / Follow-Up Instructions / Follow-Up . SPECIAL CARE INSTRUCTIONS: 1. Follow through with your scheduled aftercare appointments. If unable to keep an appointment, please call to reschedule. 2. Take your medication only as prescribed. Medication should not be changed or stopped without the approval of your doctor. In the event of worsening symptoms or concerns about side effects, contact your doctor immediately. 3. Utilize new healthy coping skills, anger management skills, and stress management skills learned during your hospitalization. Journal feelings and process them with a support person. Identify stressors or situations that may result in relapse, deterioration or inappropriate behaviors and develop a plan to deal with those issues. 4. If your coping skills are ineffective and you are in crisis, contact your outpatient providers for direction. If unable to reach your providers, please call the CAN HELP LINE AT or go to the closest Emergency Room. 5. Avoid alcohol and un-prescribed drugs. 6. You have been provided with the Mental Health Advance Directives Pamphlet for your review. AFTERCARE APPOINTMENTS: * Please call your insurance company prior to your scheduled appointment to confirm your aftercare providers are covered. Take your insurance information to your appointments. . Discharge / Aftercare Planning Primary Care Physician: Name: Dr. Tyson Appointment Notes: As needed Psychiatrist: Name: Sarah Walls [facility] Date of Appointment: Jul 21, 2016 Time of Appointment: 1:30 Therapist: Name Of Therapist: none, pt not willing to accept Agency Manager: Name: none, pt not willing to accept . Follow-Up Care Plan for Follow-Up Care: keep follow up appointments it is recommended you abstain from marijuana Current Hospital Diet Patient's current hospital diet: Regular Diet Discharge Diet Recommended Diet: Regular Diet Procedures Procedures Performed: No Pending Studies Pending Studies at Discharge: No Medical Emergencies . Who to Call and When: Medical Emergencies: For questions or emergencies related to your hospital stay, please contact the Inpatient Behavioral Health Unit at [phone]. A plate corrector is on-call 06/11 for the Behavioral Health Unit for emergencies At any time you feel your situation is an emergency, you may also call 911 immediately. . Non-Emergent Contact Non-Emergency issues call your: Primary Care Provider Advance Directives Existing Advance Directive: No Do You Have an Existing Mental: No Existing Living Will: No Existing Power of Timber Watchman: No Advance Directives Info Given: To Pt/S.O. (declines advance directives due to age and mental health admit) Discharge Summary Admission HPI Per the Admitting provider: Ga has a history of frequent trips to the ED and reports 3 psychiatric hospitalizations at the [facility] in the past year for anxiety and passive wish. "I wouldn't hurt myself but I sometimes feel it would be easier if I wasn 't around". He was previously seen in psychiatric consultation by Dr. Baptiste on after several visits to ED for panic. It was noted at that time that he self medicates with MJ and recommendations were to avoid benzos. Based on [employer] query it apperas that he was prescribed Ativan while at the [facility], no benzo since October when is was tapered by Dr. Flores. He states that he was admitted to the [facility] in May for uncontrolled anxiety with "racing thoughts", mainly worries about something bad happening to his mother or not being able to pay his bills which then escalates to feeling of chest tightness. He was switched from Seroquel 50 mg BID and 100 hs to Thorazine during that stay. 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 He states he won't feel like getting out of bed and isolates more, "my mom can tell ". He may not feel like making himself something to eat. He is rather vague about the frequency of his MJ use, admits that when he is stressed he will smoke up to 1 PPD (usually 1/2 PPD cigarettes). He has also received Tylenol with codeine short supplies from various EDs for dental pain as he has very poor dentition. [facility] confirmed to staff that he has missed 12 appts but apparently has had med refills as pharmacy confirms meds filled as listed on 06/17. He states that Lexapro has been more helpful than Celexa previously for his mood. He believes that he may have been diagnosed with unspecified bipolar disorder but denies any periods of hypomania or extreme irritability. He denies a history of rowan. Some of his previous ED visits for panic were in setting of cannabis withdrawal. Hospital Course (1) Major depressive disorder, recurrent episode with anxious distress On admission: The patient is admitted to [facility] ([facility] mental [facility]) on q 15 min checks (behavioral with suicide precautions) for safety. The patient will participate in group, recreational and milieu therapies and will be offered additional individual and family sessions as clinically appropriate. patient currently finds Lexapro helpful but remains anxious discussed obtaining ABUNDIO for [facility] and initiating thorazine taper in favor of a trial of Neurontin for anxiety/mood, reviewed that I advise against benzodiazepines. discussed possible retrial of Seroquel if records or family confirm that he was not abusing it needs outpatient follow up, ideally family meeting involving mom with confirmation that rifle is secure given recent passive wish (2) Tobacco abuse declines cessation counseling, accepts nicotine patch (3) Marijuana abuse advise abstinence Risk Factors Assessment Male: Yes : Yes /single/: Yes Access to guns: No (mother confirmed) Substance use disorders: Yes Previous attempt: No Previous psychiatric stay: Yes Smoker: Yes Protective Factors Assessment Employed: No Supportive family: Yes Day of Discharge Assessment Patient did not participate in programming on the unit and spent most of the day in bed. States he didn't sleep well due to restless legs and requests Klonopin. Reviewed that just like discussion yesterday I recommend trials of neurontin and now that tapered off of thorazine he may resume his previous dose of Seroquel. Risks/benefits/alternative treatments were reviewed re: antipsychotics for mood and/or psychosis. Discussion included but was not limited to metabolic side effects, risks of TD and suicidal thoughts. Baseline AIMS=0. Fasting glucose and lipid panel cannot be obtained today as already ate breakfast. He declines longer stay in hospital and submitted 72 hour notice yesterday, requested discharge yesterday afternoon. No issues overnight. Denies SI. Laboratory Test 06/11/16 18:45 06/11/16 18:55 06/22/16 00:00 06/22/16 13:08 White Blood Count 7.73 Red Blood Count 4.69 L Hemoglobin 14.3 Hematocrit 40.3 L Mean Corpuscular Volume 85.9 Mean Corpuscular Hemoglobin 30.5 Mean Corpuscular Hemoglobin Concent 35.5 Platelet Count 319 Mean Platelet Volume 9.1 Neutrophils (%) (Auto) 73.2 Lymphocytes (%) (Auto) 22.8 Monocytes (%) (Auto) 2.8 Eosinophils (%) (Auto) 0.8 Basophils (%) (Auto) 0.3 Neutrophils # (Auto) 5.66 Lymphocytes # (Auto) 1.76 Monocytes # (Auto) 0.22 Eosinophils # (Auto) 0.06 Basophils # (Auto) 0.02 RDW Standard Deviation 40.7 RDW Coefficient of Variation 13.0 Immature Granulocyte % (Auto) 0.1 Immature Granulocyte # (Auto) 0.01 Sodium Level 139 Potassium Level 3.5 Chloride Level 105 Carbon Dioxide Level 26 Anion Gap 8.0 Blood Urea Nitrogen 14 Creatinine 0.88 Est Creatinine Clear Calc Drug Dose 115.3 Estimated GFR () 143.3 Estimated GFR (Non- 123.7 BUN/Creatinine Ratio 15.6 Random Glucose 113 H Calcium Level 9.0 Total Bilirubin 0.4 Aspartate Amino Transferase (AST) 14 L Alanine Aminotransferase (ALT) 15 Alkaline Phosphatase 100 Total Protein 8.0 Albumin 3.8 Globulin 4.2 H Albumin/Globulin Ratio 0.9 Thyroid Stimulating Hormone (TSH) 0.201 L Salicylates Level 2.4 L 2.1 L Acetaminophen Level < 2 L < 2 L Ethyl Alcohol mg/dL < 3.0 Urine Color DK YELLOW DK YELLOW Urine Appearance CLEAR CLEAR Urine pH 6.5 5.0 Urine Specific [place] 1.039 H 1.022 Urine Protein TRACE H NEG Urine Glucose (UA) NEG NEG Urine Ketones TRACE H NEG Urine Occult Blood NEG NEG Urine Nitrite NEG NEG Urine Bilirubin NEG NEG Urine Urobilinogen NEG NEG Urine Leukocyte Esterase TRACE H SMALL H Urine WBC (Auto) 1-5 10-30 H Urine RBC (Auto) 0-4 0-4 Urine Hyaline Casts (Auto) 1-5 5-10 H Urine Epithelial Cells (Auto) 20-30 H 10-20 H Urine Bacteria (Auto) NEG NEG Urine Synthetic Stimulants see note Pending Urine Opiates Screen POS H POS H Urine Codeine Confirmation (GC/MS) NEGATIVE Pending Urine Morphine Confirm (GC/MS) 3700 A Pending Urine Hydrocodone Confirm (GC/MS) NEGATIVE Pending Urine Norhydrocodone NEGATIVE Pending Urine Noroxycodone NEGATIVE Pending Urine Oxycodone Confirm (GC/MS) NEGATIVE Pending Urine Oxymorphone Confirm (GC/MS) NEGATIVE Pending Urine Methadone, Qualitative NEG NEG Urine Hydromorphone Confirm (GC/MS) 197 A Pending Urine Barbiturates NEG NEG Urine Phencyclidine (PCP) Level NEG NEG Ur Amphetamine/Methamphetamine NEG NEG Urine MDE-amphetamine (MDEA) negative Pending Ur Methylenedioxyamphetamine (MDA) negative Pending MDMA (Ecstasy) Screen POS H POS H Methylenedioxymethamphetamine (MDMA negative Pending Urine Benzodiazepines Screen NEG NEG Urine Cocaine Metabolite NEG NEG Cannabinoids Comment see note Pending Urine Synthetic Cannabinoids NEGATIVE Pending Ur Synthetic Cannabinoids Confirm Pending Urine Marijuana (THC) NEG NEG Test 06/22/16 13:18 White Blood Count 8.65 Red Blood Count 4.89 Hemoglobin 15.0 Hematocrit 43.3 Mean Corpuscular Volume 88.5 Mean Corpuscular Hemoglobin 30.7 Mean Corpuscular Hemoglobin Concent 34.6 Platelet Count 237 Mean Platelet Volume 9.1 Neutrophils (%) (Auto) 63.0 Lymphocytes (%) (Auto) 27.1 Monocytes (%) (Auto) 5.5 Eosinophils (%) (Auto) 4.0 Basophils (%) (Auto) 0.2 Neutrophils # (Auto) 5.44 Lymphocytes # (Auto) 2.34 Monocytes # (Auto) 0.48 Eosinophils # (Auto) 0.35 Basophils # (Auto) 0.02 RDW Standard Deviation 43.8 RDW Coefficient of Variation 13.5 Immature Granulocyte % (Auto) 0.2 Immature Granulocyte # (Auto) 0.02 Sodium Level 140 Potassium Level 4.0 Chloride Level 104 Carbon Dioxide Level 27 Anion Gap 9.0 Blood Urea Nitrogen 11 Creatinine 0.95 Est Creatinine Clear Calc Drug Dose 111.2 Estimated GFR () 133.0 Estimated GFR (Non- 114.8 BUN/Creatinine Ratio 11.5 Random Glucose 141 H Calcium Level 9.1 Total Bilirubin 0.4 Aspartate Amino Transferase (AST) 14 L Alanine Aminotransferase (ALT) 16 Alkaline Phosphatase 95 Total Protein 7.6 Albumin 3.7 Globulin 3.9 Albumin/Globulin Ratio 0.9 Thyroid Stimulating Hormone (TSH) 2.200 Ethyl Alcohol mg/dL < 3.0 Total Time Total Time Spent (min): Less than 30 minutes Total Time Included: examination of the patient, medication reconciliation Tobacco Cessation at Discharge FDA approved Prescription: patient refused (he also refuses outpatient cessation counseling)
[2016-06-28 19:35] LABS: COD UR 490 NG/ML (CUTOFF=50); HYDROCOD UR NEGATIVE NG/ML (CUTOFF=50); HYDROMOR UR 75 NG/ML (CUTOFF=50); MORPHINE UR >20000 NG/ML (CUTOFF=50); NORHYDROCODONE CONF UR NEGATIVE NG/ML (CUTOFF=50); OXYMORPH UR NEGATIVE NG/ML (CUTOFF=50); SYNTHETIC CANNABINOIDS QL URIN NEGATIVE (Negative)
== END 2016-06-24 10:20 | disposition home or self-care (01) | DRG 885 ==
LOC: C.EDB 12:39 → C.MHU 16:22
PROVIDERS: ADMIT Psychiatry & Neurology Child & Adolescent Psychiatry; ATTEND Psychiatry & Neurology Child & Adolescent Psychiatry
DX: F33.9 Major depressive disorder, recurrent, unspecified (principal); F41.9 Anxiety disorder, unspecified; F90.9 Attention-deficit hyperactivity disorder, unspecified type; F17.210 Nicotine dependence, cigarettes, uncomplicated; F12.10 Cannabis abuse, uncomplicated; Z79.899 Other long term (current) drug therapy; Z81.8 Family history of other mental and behavioral disorders

== ENCOUNTER 2019-05-16 21:45 | Inpatient (IN) ==
[2019-05-16 22:40] LABS: Appearance Urine Clear (Clear); Bacteria Urine Automated Negative (Negative); Blood Urine Negative (Negative); Color Urine Dark Yellow; Epithelial Cell Urine Auto 20-30 /lpf (0-5); Glucose Urine UA Negative (Negative); Ketones Urine Trace (Negative); Leukocyte Esterase Urine Trace (Negative); Nitrite Urine Negative (Negative); Protein Urine Trace (Negative); RBC Urine Automated 0-4 /hpf (0-4); Specific Gravity Urine 1.037 (1.000-1.030); Urobilinogen Urine Negative (Negative)
[2019-05-16 22:43] LABS: Bilirubin Urine Negative (Negative); Ictotest Urine Negative (Negative)
[2019-05-16 22:59] LABS: Basophils # (auto) 0.02 K/uL (0-0.2); Basophils % (auto) 0.3 %; Eosinophils # (auto) 0.23 K/uL (0-0.5); Eosinophils % (auto) 2.9 %; Hematocrit (blood only) 46.1 % (42-52); Hemoglobin 15.7 g/dL (14.0-18.0); Immature Granulocytes # (auto) 0.01 K/uL (0.00-0.02); Immature Granulocytes % (auto) 0.1 %; Lymphocytes % (auto) 22.9 %; Mean Corpuscular Hgb Conc 34.1 g/dL (32-36); Mean Corpuscular Volume 91.1 fL (80-100); Mean Platelet Volume 9.6 fL (7.4-10.4); Monocytes # (auto) 0.71 K/uL (0.11-0.59); Neutrophils # (auto) 5.09 K/uL (1.4-6.5); Neutrophils % (auto) 64.8 %; Platelet Count 240 K/uL (130-400); RDW Coefficient of Variation 12.8 % (11.5-14.5); RDW Standard Deviation 42.7 fL (36.4-46.3); Red Blood Count 5.06 M/uL (4.7-6.1); White Blood Count 7.86 K/uL (4.8-10.8)
[2019-05-16 23:11] LABS: Amphetamines+Metham, Urine Pos (Neg); Barbiturates, Urine Neg (Neg); Benzodiazepine, Urine Neg (Neg); Cocaine, Urine Neg (Neg); MDMA (Ecstacy), Urine Pos (Neg); Methadone, Urine Neg (Neg); Opiate, Urine Neg (Neg); Phencyclidine, Urine Neg (Neg)
[2019-05-16] MEDS ORDERED: NICOTINE POLACRILEX 2 MG GUM MT PRN (23:12)
[2019-05-16 23:23] LABS: Albumin Level 4.2 gm/dl (3.4-5.0); BUN Creatinine Ratio 11.4 (10-20); Creatinine Clr Calc Pharmacy 110.6 ml/min; Est GFR (African American) 119.5; Est GFR (Non-African American) 103.1; Potassium 3.7 mmol/L (3.5-5.1)
[2019-05-16 23:25] LABS: Acetaminophen < 2 ug/ml (10-30); Salicylate 1.7 mg/dl (2.8-20)
[2019-05-16 23:33] LABS: Bilirubin,Total 0.6 mg/dl (0.2-1); Globulin 4.1 gm/dl (2.5-4.0); Thyroid Stimulating Hormone 1.74 uIu/ml (0.300-4.500); Total Protein 8.3 gm/dl (6.4-8.2)
--- NOTE | 2019-05-17 01:48 | Emergency Department Note ---
Entered by Junior Nielsen acting as a scribe for Dominique Carty DO History of Present Illness General Chief Complaint: Mental Health Evaluation Stated Complaint: MENTAL HEALTH Time Seen by Provider: 05/16/19 23:00 Source: patient History of Present Illness Provider complaint: feels depressed Onset (ago): month(s) Duration: changing over time History of same: Yes Context: + not taking psychiatric medications Associated psychiatric symptoms: + depression and + suicidal ideation Associated symptoms: + denies other symptoms The patient is a 23 year old male who presents to the Emergency Room with compl aints of worsening depression over the past couple of months. Per the psych case manager specialist, the patient met with [facility] yesterday about his depression. The case manager specialist states that the patient recently got out of care home in February after being imprisoned for outstanding fines from retail theft cases. The patient endorses some passive SI and notes that he has had issues with depression since being a child. The patient also admits that he has not taken any of his medications since January and he does not see a therapist. The patient denies any physical symptoms at this time but notes he is getting screened for an oral surgery. The patient admits to smoking cigarettes and marijuana but denies any alcohol or other drug use. Home Medications Home Medications Medication Instructions Recorded Confirmed Type No Known Home Medications 05/16/19 05/16/19 History Allergies Allergy/AdvReac Type Severity Reaction Status Date / Time acetaminophen Allergy Unknown red and Verified 01/17/16 04:59 itchy Past Med/Surg History Medical History ADHD (attention deficit hyperactivity disorder) (Resolved) Anxiety (Acute) Depression (Acute) Marijuana abuse (Chronic) Suicidal ideation (Acute) Tobacco abuse (Chronic) Surgical History No significant past surgical history Family History Other No pertinent family history in first degree relatives Social History Preferred Language: Sinhala Communication Ability: Effective Tester Regulator Required: No Beliefs That Will Affect Care: None marital status: Single current occupational status: employed Feels Safe at Home: Yes Smoking Status: Current every day smoker Tobacco Type: cigarettes ; Review of Systems See HPI for pertinent positives & negatives. and A total of 10 systems reviewed and were otherwise negative Physical Exam Vital Signs Vital Signs - 24 hr 05/16/19 21:55 05/16/19 23:25 Temperature 98.4 F Temperature Source Oral Pulse Rate 87 Pulse Rhythm Regular Pulse Strength Normal Respiratory Rate 18 20 Respiratory Effort / Characteristics Non-Labored Spontaneous Non-Labored Spontaneous Respiratory Depth Normal Normal Respiratory Pattern Regular Blood Pressure 134/83 Blood Pressure [Right Arm] 138/75 Blood Pressure Mean 100 Blood Pressure Mean [Right Arm] 96 Blood Pressure Position Sitting Blood Pressure Position [Right Arm] Sitting Pulse Oximetry 100 98 Oxygen Delivery Method Room Air Room Air Sepsis Recent Fever Within 48 Hours No Sepsis Action Taken by Nursing No Action Required GENERAL: alert, well appearing, well nourished, no distress, non-toxic EYE EXAM: normal conjunctiva, PERRL and EOM's grossly intact OROPHARYNX: Poor dentition, no exudate, no erythema, lips, buccal mucosa, and tongue normal and mucous membranes are moist NECK: supple, no nuchal rigidity, no adenopathy, non-tender LUNGS: Clear to auscultation. Normal chest wall mechanics, no w/r/r HEART: no murmurs, S1 normal and S2 normal ABDOMEN: abdomen soft, non-tender, normo-active bowel sounds, no masses, no rebound or guarding. BACK: Back is symmetrical on inspection and there is no deformity, no midline tenderness, no CVA tenderness. SKIN: no rashes and no bruising UPPER EXTREMITIES: upper extremities are grossly normal. FROM, nml pulses b/l. LOWER EXTREMITIES: No pitting edema. FROM, nml pulses b/l. NEURO EXAM: Normal sensorium, cranial nerves II-XII grossly intact, normal speech, no gross weakness of arms, no gross weakness of legs. Course Course 2319: Past medical records reviewed. The patient was evaluated in room A05, and a complete history and physical examination were performed. 0241: The patient is medically cleared. I signed the 201 and the patient has been accepted to [address] [place] [address] for further psych evaluation. Administered Medications Escitalopram Oxalate (Lexapro Tab) 10 mg PO QAM JULIA Stop: 06/16/19 12:59 Last Admin: 05/17/19 14:17 Dose: 10 mg Documented by: [id number] Ibuprofen (Motrin) 600 mg PO Q6H PRN PRN Reason: Pain Stop: 06/16/19 13:57 Last Admin: 05/17/19 14:17 Dose: 600 mg Documented by: [id number] Nicotine Polacrilex (Nicorette 2mg) 1 piece MT PRN PRN PRN Reason: Agitation Stop: 06/15/19 23:11 Last Admin: 05/16/19 23:15 Dose: 1 piece Documented by: [id number] Quetiapine Fumarate (Seroquel) 100 mg PO HS JULIA Stop: 06/16/19 21:59 Last Admin: 05/17/19 21:06 Dose: 100 mg Documented by: [id number] Medical Decision Making Differential Diagnosis Differential diagnoses considered include mood disorder, infection, hypoglycemia, electrolyte abnormalities, cardiac sources, intracerebral event, toxicologic, neurologic, as well as others. Medical Records Attestation: I reviewed the patient's medical records. Home Medications Current Medication List: was personally reviewed by me Laboratory Data Attestation: I reviewed the patient's lab results. Result diagrams: 05/16/19 22:45 05/16/19 22:45 Lab Results 05/16/19 05/16/19 05/16/19 Range/Units 22:03 22:03 22:45 WBC 7.86 (4.8-10.8) K/uL RBC 5.06 (4.7-6.1) M/uL Hgb 15.7 (14.0-18.0) g/dL Hct 46.1 (42-52) % MCV 91.1 (80-100) fL MCH 31.0 (25-34) pg MCHC 34.1 (32-36) g/dL RDW Std Deviation 42.7 (36.4-46.3) fL RDW Coeff of Zev 12.8 (11.5-14.5) % Plt Count 240 (130-400) K/uL MPV 9.6 (7.4-10.4) fL Immature Gran % (Auto) 0.1 % Neut % (Auto) 64.8 % Lymph % (Auto) 22.9 % Butts % (Auto) 9.0 % Eos % (Auto) 2.9 % Baso % (Auto) 0.3 % Immature Gran # (Auto) 0.01 (0.00-0.02) K/uL Neut # (Auto) 5.09 (1.4-6.5) K/uL Lymph # (Auto) 1.80 (1.2-3.4) K/uL Butts # (Auto) 0.71 H (0.11-0.59) K/uL Eos # (Auto) 0.23 (0-0.5) K/uL Baso # (Auto) 0.02 (0-0.2) K/uL Sodium (136-145) mmol/L Potassium (3.5-5.1) mmol/L Chloride (98-107) mmol/L Carbon Dioxide (21-32) mmol/L Anion Gap (3-11) BUN (7-18) mg/dl Creatinine (0.6-1.4) mg/dl Est Cr Clr Drug Dosing ml/min Est GFR ( Amer) Est GFR (Non-Af Amer) BUN/Creatinine Ratio (10-20) Glucose (70-99) mg/dl Calcium (8.5-10.1) mg/dl Total Bilirubin (0.2-1) mg/dl AST (15-37) U/L ALT (12-78) U/L Alkaline Phosphatase (45-117) U/L Total Protein (6.4-8.2) gm/dl Albumin (3.4-5.0) gm/dl Globulin (2.5-4.0) gm/dl Albumin/Globulin Ratio (0.9-2) TSH (0.300-4.500) uIu/ml Urine Color Dark Yellow Urine Appearance Clear (Clear) Urine pH 6.0 (4.5-7.5) Ur Specific Rico 1.037 H (1.000-1.030) Urine Protein Trace H (Negative) Urine Glucose (UA) Negative (Negative) Urine Ketones Trace H (Negative) Urine Blood Negative (Negative) Urine Nitrite Negative (Negative) Urine Bilirubin Negative (Negative) Urine Urobilinogen Negative (Negative) Ur Leukocyte Esterase Trace H (Negative) Urine WBC (Auto) 5-10 H (0-5) /hpf Urine RBC (Auto) 0-4 (0-4) /hpf U Hyaline Cast (Auto) 5-10 H (0-5) /lpf U Epithel Cells (Auto) 20-30 H (0-5) /lpf Urine Bacteria (Auto) Negative (Negative) Nasal Screen MRSA (PCR) (Negative) Salicylates (2.8-20) mg/dl Urine Opiates Screen Neg (Neg) Ur Methadone, Qual Neg (Neg) Acetaminophen (10-30) ug/ml Urine Barbiturates Neg (Neg) Ur Phencyclidine (PCP) Neg (Neg) U Amphetamin/Meth Scrn Pos H (Neg) MDMA (Ecstasy) Screen Pos H (Neg) U Benzodiazepines Scrn Neg (Neg) Ur Cocaine Metabolite Neg (Neg) U Marijuana (THC) Screen Pos H (Neg) Ethyl Alcohol mg/dL (0-3) mg/dl 05/16/19 05/16/19 05/16/19 Range/Units 22:45 22:45 22:45 WBC (4.8-10.8) K/uL RBC (4.7-6.1) M/uL Hgb (14.0-18.0) g/dL Hct (42-52) % MCV (80-100) fL MCH (25-34) pg MCHC (32-36) g/dL RDW Std Deviation (36.4-46.3) fL RDW Coeff of Zev (11.5-14.5) % Plt Count (130-400) K/uL MPV (7.4-10.4) fL Immature Gran % (Auto) % Neut % (Auto) % Lymph % (Auto) % Butts % (Auto) % Eos % (Auto) % Baso % (Auto) % Immature Gran # (Auto) (0.00-0.02) K/uL Neut # (Auto) (1.4-6.5) K/uL Lymph # (Auto) (1.2-3.4) K/uL Butts # (Auto) (0.11-0.59) K/uL Eos # (Auto) (0-0.5) K/uL Baso # (Auto) (0-0.2) K/uL Sodium 139 (136-145) mmol/L Potassium 3.7 (3.5-5.1) mmol/L Chloride 101 (98-107) mmol/L Carbon Dioxide 32 (21-32) mmol/L Anion Gap 6.0 (3-11) BUN 12 (7-18) mg/dl Creatinine 1.02 (0.6-1.4) mg/dl Est Cr Clr Drug Dosing 110.6 ml/min Est GFR ( Amer) 119.5 Est GFR (Non-Af Amer) 103.1 BUN/Creatinine Ratio 11.4 (10-20) Glucose 95 (70-99) mg/dl Calcium 9.0 (8.5-10.1) mg/dl Total Bilirubin 0.6 (0.2-1) mg/dl AST 13 L (15-37) U/L ALT 13 (12-78) U/L Alkaline Phosphatase 88 (45-117) U/L Total Protein 8.3 H (6.4-8.2) gm/dl Albumin 4.2 (3.4-5.0) gm/dl Globulin 4.1 H (2.5-4.0) gm/dl Albumin/Globulin Ratio 1.0 (0.9-2) TSH 1.740 (0.300-4.500) uIu/ml Urine Color Urine Appearance (Clear) Urine pH (4.5-7.5) Ur Specific Rico (1.000-1.030) Urine Protein (Negative) Urine Glucose (UA) (Negative) Urine Ketones (Negative) Urine Blood (Negative) Urine Nitrite (Negative) Urine Bilirubin (Negative) Urine Urobilinogen (Negative) Ur Leukocyte Esterase (Negative) Urine WBC (Auto) (0-5) /hpf Urine RBC (Auto) (0-4) /hpf U Hyaline Cast (Auto) (0-5) /lpf U Epithel Cells (Auto) (0-5) /lpf Urine Bacteria (Auto) (Negative) Nasal Screen MRSA (PCR) (Negative) Salicylates 1.7 L (2.8-20) mg/dl Urine Opiates Screen (Neg) Ur Methadone, Qual (Neg) Acetaminophen < 2 L (10-30) ug/ml Urine Barbiturates (Neg) Ur Phencyclidine (PCP) (Neg) U Amphetamin/Meth Scrn (Neg) MDMA (Ecstasy) Screen (Neg) U Benzodiazepines Scrn (Neg) Ur Cocaine Metabolite (Neg) U Marijuana (THC) Screen (Neg) Ethyl Alcohol mg/dL < 3.0 (0-3) mg/dl 05/16/19 Range/Units 23:11 WBC (4.8-10.8) K/uL RBC (4.7-6.1) M/uL Hgb (14.0-18.0) g/dL Hct (42-52) % MCV (80-100) fL MCH (25-34) pg MCHC (32-36) g/dL RDW Std Deviation (36.4-46.3) fL RDW Coeff of Zev (11.5-14.5) % Plt Count (130-400) K/uL MPV (7.4-10.4) fL Immature Gran % (Auto) % Neut % (Auto) % Lymph % (Auto) % Butts % (Auto) % Eos % (Auto) % Baso % (Auto) % Immature Gran # (Auto) (0.00-0.02) K/uL Neut # (Auto) (1.4-6.5) K/uL Lymph # (Auto) (1.2-3.4) K/uL Butts # (Auto) (0.11-0.59) K/uL Eos # (Auto) (0-0.5) K/uL Baso # (Auto) (0-0.2) K/uL Sodium (136-145) mmol/L Potassium (3.5-5.1) mmol/L Chloride (98-107) mmol/L Carbon Dioxide (21-32) mmol/L Anion Gap (3-11) BUN (7-18) mg/dl Creatinine (0.6-1.4) mg/dl Est Cr Clr Drug Dosing ml/min Est GFR ( Amer) Est GFR (Non-Af Amer) BUN/Creatinine Ratio (10-20) Glucose (70-99) mg/dl Calcium (8.5-10.1) mg/dl Total Bilirubin (0.2-1) mg/dl AST (15-37) U/L ALT (12-78) U/L Alkaline Phosphatase (45-117) U/L Total Protein (6.4-8.2) gm/dl Albumin (3.4-5.0) gm/dl Globulin (2.5-4.0) gm/dl Albumin/Globulin Ratio (0.9-2) TSH (0.300-4.500) uIu/ml Urine Color Urine Appearance (Clear) Urine pH (4.5-7.5) Ur Specific Rico (1.000-1.030) Urine Protein (Negative) Urine Glucose (UA) (Negative) Urine Ketones (Negative) Urine Blood (Negative) Urine Nitrite (Negative) Urine Bilirubin (Negative) Urine Urobilinogen (Negative) Ur Leukocyte Esterase (Negative) Urine WBC (Auto) (0-5) /hpf Urine RBC (Auto) (0-4) /hpf U Hyaline Cast (Auto) (0-5) /lpf U Epithel Cells (Auto) (0-5) /lpf Urine Bacteria (Auto) (Negative) Nasal Screen MRSA (PCR) Negative (Negative) Salicylates (2.8-20) mg/dl Urine Opiates Screen (Neg) Ur Methadone, Qual (Neg) Acetaminophen (10-30) ug/ml Urine Barbiturates (Neg) Ur Phencyclidine (PCP) (Neg) U Amphetamin/Meth Scrn (Neg) MDMA (Ecstasy) Screen (Neg) U Benzodiazepines Scrn (Neg) Ur Cocaine Metabolite (Neg) U Marijuana (THC) Screen (Neg) Ethyl Alcohol mg/dL (0-3) mg/dl Blood Pressure Blood Pressure Findings: Elevated blood pressure Blood Pressure Disposition: Referred to patients primary care provider MDM Narrative Patient here admitting to depression and suicidal ideation and is in agreement with plan for inpatient treatment. Voluntary signed by both the patient and myself. Patient mated to 3 S. after psychiatric case manager specialist evaluation and evaluation by 3 S. Vital signs stable throughout. Impression & Plan Depression, Substance abuse Discharge Plan Visit Data *Final* Discharge Date/Time: 05/17/19 02:45 Chief Complaint: Mental Health Evaluation Stated Complaint: MENTAL HEALTH ED Provider: Dominique Carty Discharge Problem: Depression, Substance abuse Patient Disposition: Admitted As Inpatient Discharge Instructions Interventions: ED Discharge Assessment Last Done: 05/17/19 02:45 Discharge Problem: Depression Qualifiers: Depression Type: major depressive disorder Major depression recurrence: recurrent Active/Remission status: currently active Major depression episode severity: unspecified Qualified Code(s): F33.9 - Major depressive disorder, recurrent, unspecified The shine's documentation has been prepared under my direction and personally reviewed by me in its entirety. I confirm that the note above accurately reflects all work, treatment, procedures, and medical decision making performed by me.
[2019-05-17] MEDS ORDERED: SODIUM CHLORIDE 0.65% NA SOLN 45 ML (OCEAN) PRN (01:58)
[2019-05-17] MEDS ORDERED: MAGNESIUM HYDROXIDE SUSP 30 ML UDC PO PRN (01:58)
[2019-05-17] MEDS ORDERED: ALUMINUM/MAGNESIUM SUSP 30 ML UDC PO PRN (01:58)
[2019-05-17] MEDS ORDERED: BISMUTH SUBSALICYLATE PER ML OMNICELL CHARGE PO PRN (01:58)
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
[2019-05-17] MEDS ORDERED: QUETIAPINE FUMARATE 100 MG TABLET PO PRN (12:58)
[2019-05-17] MEDS ORDERED: IBUPROFEN 600 MG TAB PO PRN (13:58)
[2019-05-17] MEDS: ESCITALOPRAM OXALATE 10 MG TAB PO SCH (14:17)
[2019-05-17] MEDS ORDERED: QUETIAPINE FUMARATE 100 MG TABLET PO SCH (22:00)
[2019-05-18] MEDS: ESCITALOPRAM OXALATE 10 MG TAB PO SCH (08:36)
--- NOTE | 2019-05-18 10:43 | Psychiatric Progress Note ---
Date of Service May 18, 2019 Impression / Recommendations Impression 23 yo male with a history of recurrent depressive symptoms, some early trauma exposure, questionable bipolar history though complicated by substance abuse. Hx of impulsivity and some legal charges. (1) Major depressive disorder, recurrent episode with anxious distress: 05/17--The patient was admitted to the [facility] ([facility] mental health unit) on q15 min checks (behavioral with suicide precautions) for safety. The patient will participate in group, recreational, and milieu therapies and will be offered additional individual and family sessions as clinically appropriate. Weekend so difficult to get records to confirm bipolar dx, patient denies but benefit from mood stabilizers, discussed overlap of symptoms with ADHD which has been untreated and may also contribute to impulse control issues and substance use. Risks/benefits/alternatives reviewed re: Lexapro and Seroquel, agrees to restart at lower doses. Discussion included but was not limited to FDA warnings re: SI and need for metabolic monitoring (labs in am) and risk of TD. Patient reports some tics at baseline related to ADHD like his eye blinking and some neck jerk. None present on exam at this time, baselined AIMS=0. 2/2--titrate Lexapro and Seroquel, retrial of fasting labs in am. Risk Factors Assessment Do You Have Access To A Gun?: No Protective Factors Assessment Employed: No (recently lost job) Interval History Chief Complaint "I didn't sleep great, everything is the same". Review of Systems Sleep Information Total Hours of Sleep: 8 Meal Information Percent Meal Consumed - Breakfast: 25 Percent Meal Consumed - Lunch: 30 Percent Meal Consumed - Dinner: 25 Nutrition Comment: Pt has difficulty consuming certain foods d/t poor dentition. Subjective Subjective Patient was seen & assessed and interval progress reviewed with nursing. Ate in room yesterday, refused groups. Reportedly slept 8 hrs but he denies. Refused fasting labs as "I just woke up". Discussed importance of programming and family meeting, he believes mother will only be available by phone. He continues to endorse passive SI when asked. Physical Exam Psychiatric Orientation: alert and oriented x 3 Apperance: appropriately dressed Eye Contact: + fair eye contact Motor Behavior: no abnormal motor movements Speech: normal rate/rhythm/volume of speech Affect: + depressed affect Mood: + depressed mood Thought Process: goal directed thought process Thought Content: reality based without delusions Suicidal Thoughts: denies suicidal thoughts (on unit, unable to engage in safety planning) Homicidal Thoughts: denies homicidal thoughts Hallucinations: no auditory hallucinations and no visual hallucinations Cognition: recent memory grossly intact Insight: + limited insight Judgement: + limited judgement Vital Signs (Past 24 Hours) Last Vital Signs Temp 36.4 C L 05/18/19 06:44 Pulse 71 05/18/19 06:45 Resp 18 05/18/19 06:44 BP 121/72 05/18/19 06:45 Pulse Ox 98 05/16/19 23:25 Results & Data Current Inpatient Medications Current Inpatient Medications: Current Inpatient Medications Al Hydrox/Mg Hydrox/Simethicone (Maalox) 30 ml PO Q4H PRN PRN Reason: GI Upset Stop: 06/16/19 01:57 Bismuth Subsalicylate (Kaopectate) 15 ml PO PRN PRN PRN Reason: Loose Stool Stop: 06/16/19 01:57 Escitalopram Oxalate (Lexapro Tab) 10 mg PO [facility] Stop: 06/16/19 12:59 Last Admin: 05/18/19 08:36 Dose: 10 mg Documented by: Hydroxyzine HCl (Vistaril) 50 mg PO HSZ PRN PRN Reason: Insomnia Stop: 06/16/19 01:57 Hydroxyzine HCl (Vistaril) 25 mg PO Q4H PRN PRN Reason: Anxiety Stop: 06/16/19 01:57 Ibuprofen (Motrin) 600 mg PO Q6H PRN PRN Reason: Pain Stop: 06/16/19 13:57 Last Admin: 05/17/19 14:17 Dose: 600 mg Documented by: Magnesium Hydroxide (Milk Of Magnesia) 30 ml PO DAILY PRN PRN Reason: Constipation Stop: 06/16/19 01:57 Nicotine Polacrilex (Nicorette 2mg) 1 piece MT PRN PRN PRN Reason: Agitation Stop: 06/15/19 23:11 Last Admin: 05/16/19 23:15 Dose: 1 piece Documented by: Quetiapine Fumarate (Seroquel) 100 mg PO HS JULIA Stop: 06/16/19 21:59 Last Admin: 05/17/19 21:06 Dose: 100 mg Documented by: Quetiapine Fumarate (Seroquel) 100 mg PO HS PRN PRN Reason: Anxiety/Insomnia Stop: 06/16/19 21:59 Sodium Chloride ([place] Nasal) 1 - 2 sprays NA PRN PRN PRN Reason: Nasal Dryness/Congestion Stop: 06/16/19 01:57 Mental Health & Subst Abuse Tx Therapist Name of Therapist: None Warehouse Receiving Supervisor Name of Warehouse Receiving Supervisor: None
[2019-05-18] MEDS ORDERED: QUETIAPINE FUMARATE 200 MG TAB PO SCH (22:00)
[2019-05-19] MEDS ORDERED: ESCITALOPRAM OXALATE 20 MG TAB PO SCH (09:00)
[2019-05-19] MEDS ORDERED: PROPRANOLOL HCL 20 MG TAB PO PRN (10:54)
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
[2019-05-20] MEDS ORDERED: ESCITALOPRAM OXALATE 10 MG TAB PO SCH (09:00)
[2019-05-21 10:39] LABS: Amphetamine Urine, Confirm 593 ng/mL (<250); MDA negative; MDEA negative; MDMA (Ecstasy) Urine, Confirm negative; Marijuana Quant, GCMS Urine 594 ng/mL (<5); Methamphetamine, Ur Confirm 903 ng/mL (<250)
== END 2019-05-19 12:40 | disposition home or self-care (01) | DRG 885 ==
LOC: ED 21:45 → 3S 05-17 01:58